=== PATIENT | male | born 1980 | race Caucasian/White ===

== ENCOUNTER 2024-11-26 07:57 | Outpatient (CLI) | payer MEDICAID ==
--- NOTE | 2024-11-26 11:18 | RADIOLOGY REPORT ---
CT Chest without intravenous contrast INDICATION: NICOTINE DEPENDENCE, UNSPECIFIED, UNCOMPLICATED TECHNIQUE: Multidetector spiral CT of the chest was performed from the lung apices to the upper abdom en. Axial, coronal and sagittal multiplanar reformats were performed. Radiation dose : Chest: CTDI volume is 3 mGy. Dose-length product is 142 mGy*cm The dose indicators for CT are the volume computed tomography (CT) dose index (CTDIvol) and the dose length product (DLP), and are measured in units of mGy and mGy-cm, respectively. These indicators are not patient dose, but values generated from the CT scanner acquisition factors. The report includes radiation exposure data for exposures received during this examination. Comparison: None Findings: Lower neck: Normal thyroid. Lungs: Subpleural nodule in the medial right lung base measuring up to 9 mm. Heart/Vascular Structures: Normal heart size. No pericardial effusion. Moderate coronary artery calci fication. Lymph Nodes: Subcentimeter mediastinal and bilateral axillary lymph nodes. Pleura: No pleural effusion or significant pneumothorax. Musculoskeletal: No acute osseous abnormality. Soft tissues: Normal. Upper abdomen: Limited portions of the upper abdomen are unremarkable. IMPRESSION: 1. Subpleural nodule in the medial right lung base measuring up to 9 mm. Lung-RADS 4A-suspicious. Fol low-up CT in 3 months is recommended. If there is high clinical concern recommend further evaluation with PET-CT and/or CT-guided biopsy. Radiation optimization: All CT scans at this facility use at least one of these dose optimization samy hniques: Automated exposure control mA and/or kV adjustment per patient size (includes targeted exams where dose is matched to clinical indication) or iterative reconstruction. HS:Y
== END 2024-11-26 23:59 | disposition home or self-care (01) ==
LOC: RAD 07:57
PROVIDERS: ATTEND Student in an Organized Health Care Education/Training Program
DX: Z12.2 Encounter for screening for malignant neoplasm of respiratory organs (principal); F17.200 Nicotine dependence, unspecified, uncomplicated; R91.1 Solitary pulmonary nodule; F17.210 Nicotine dependence, cigarettes, uncomplicated; R59.0 Localized enlarged lymph nodes
CPT/HCPCS: 71271